=== PATIENT | female | born 1965 ===

== ENCOUNTER → 2017-05-27 | Outpatient (CLI) | payer BC ==
[~2017-05-27] MED LIST: AZIT-1 PO; BENZ100C4 PO; BENZ200C15 PO; BLOO1STR16 MC; ESOM40CA42 PO; FLU150 PO; FLU45SYR17 IM; FLU45SYR25 IM ONLY; GEMF600T91 PO; GLY5 PO; IBU200 PO; INSU100I10 SUBQ; INSU100I30; KET10 PO; LEVO-85 PO; LISI2.5T60 PO; LISINOPRIL; LOSA50TA68 PO; METF-407 PO; METF-420 PO; METFORMIN; METH4TAB66 PO; MULT-1335 PO; PAR20 PO; PARO10TA78 PO; PARO10TA80 PO; PEN1DIS. MC; PER PO; PRED20TA6 PO; ROSU20TA13 PO; SIMV-49 PO; SITA100T PO
== END ==
LOC: LAB 06:27
PROVIDERS: ATTEND Emergency Medicine
DX: E11.9 Type 2 diabetes mellitus without complications (principal)
CPT/HCPCS: 36415; 83036

== ENCOUNTER → 2017-05-29 | Outpatient (CLI) | payer BC ==
[~2017-05-29] MED LIST changes: +INSU100I35 SQ; +LOSA100T67 PO
--- NOTE | 2017-05-30 16:16 | EKG ---
FACILITY: [facility] - [place] PATIENT NAME: WILD MCGRATH : [id number] MR: [id number] V: [id number] EXAM DATE: ORDERING PHYSICIAN: ASHLEY CASE TECHNOLOGIST: JEFF Cade Reason : NECK TIGHTNESS Blood Pressure : / mmHG Vent. Rate : 082 BPM Atrial Rate : 082 BPM P-R Int : 142 ms QRS Dur : 080 ms QT Int : 388 ms P-R-T Axes : 025 067 026 degrees QTc Int : 453 ms Normal sinus rhythm Normal ECG No previous ECGs available Referred By: Confirmed By:
== END ==
LOC: RESP 17:04
PROVIDERS: ATTEND Emergency Medicine
DX: Z02.9 Encounter for administrative examinations, unspecified (principal)

== ENCOUNTER → 2017-07-13 | Outpatient (CLI) | payer BC | LOC: LAB 07:53 | PROVIDERS: ATTEND Emergency Medicine | DX: E11.9 Type 2 diabetes mellitus without complications (principal) | CPT/HCPCS: 36415; 82310; 82374; 82435; 82565; 82947; 84132; 84295; 84520 ==

== ENCOUNTER → 2017-08-23 | Outpatient (CLI) | payer BC | LOC: LAB 08:33 | PROVIDERS: ATTEND Emergency Medicine | DX: E11.9 Type 2 diabetes mellitus without complications (principal) | CPT/HCPCS: 36415; 83036 ==

== ENCOUNTER → 2017-08-29 | Outpatient (CLI) | payer BC ==
[~2017-08-29] MED LIST changes: +ALBU8.5H IH; +BLOO-960 MC
--- NOTE | 2017-08-29 13:54 | RADIOLOGY IMAGING REPORT ---
FACILITY: [facility] PATIENT NAME: Laine Hercules : 1965 MR: [id number] V: [id number] EXAM DATE: ORDERING PHYSICIAN: ASHLEY CASE TECHNOLOGIST: Location: [facility] - [place] Patient: Laine Hercules : 1965 Visit/Account:[id number] Date of Sevice: 08/29/2017 Exam type: CHEST PA AND LAT History: Cough x 1 month Comparison: May 20, 2015 Findings: Thereare mild hypoventilatory changes noted bilaterally. No lobar consolidation or pulmonary edema i dentified.. There is subtle peribronchial thickening bilaterally. The cardiac silhouette is normal in size. Surgical clips present in the right upper quadrant of abdomen. 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 IMPRESSION: 1. Subtle peribronchial thickening bilaterally which could be chronic versus an acute peribronchial inflammatory process Report Dictated By: Cele Fields MD at 08/29/2017 1:49 PM Report E-Signed By: Cele Fields MD at 08/29/2017 1:51 PM WSN:[email or web address]
== END ==
LOC: RAD 10:29
PROVIDERS: ATTEND Emergency Medicine
DX: R91.8 Other nonspecific abnormal finding of lung field (principal)
CPT/HCPCS: 71046

== ENCOUNTER → 2017-11-27 | Outpatient (CLI) | payer BC ==
[~2017-11-27] MED LIST changes: +EMPA10TA PO; -GEMF600T91 PO; +GEMF600T92 PO; -LOSA100T67 PO; +LOSA100T69 PO; +PNEI IJ; -ROSU20TA13 PO; +ROSU20TA5 PO
== END ==
LOC: LAB 07:04
PROVIDERS: ATTEND Emergency Medicine
DX: E11.9 Type 2 diabetes mellitus without complications (principal)
CPT/HCPCS: 36415; 83036

== ENCOUNTER → 2018-01-01 | Outpatient (CLI) | payer BC ==
[~2018-01-01] MED LIST changes: +FLU60VIA41 IM
== END ==
LOC: LAB 15:43
PROVIDERS: ATTEND Emergency Medicine
DX: E11.9 Type 2 diabetes mellitus without complications (principal)
CPT/HCPCS: 36415; 83036

== ENCOUNTER → 2018-03-13 | Outpatient (CLI) | payer BC ==
[~2018-03-13] MED LIST changes: +EMPA25TA PO; -GEMF600T92 PO; +GEMF600T96 PO; +INSU100I8 SUBQ; -LOSA100T69 PO; +LOSA100T75 PO; +PNEI IM
== END ==
LOC: LAB 07:08
PROVIDERS: ATTEND Emergency Medicine
DX: E11.9 Type 2 diabetes mellitus without complications (principal)
CPT/HCPCS: 36415; 82310; 82374; 82435; 82565; 82947; 83036; 84132; 84295; 84520